=== PATIENT | male | born 1940 | race Caucasian/White ===

== ENCOUNTER → 2017-04-08 | Outpatient (CLI) | payer MEDICARE, BC ==
--- NOTE | ~2017-04-08 | ESTC ---
Cardiac Perfusion Imaging Demographics Patient Name TORITO Aragon Gender Male Patient Number [id number] Race Visit Number [id number] Ethnicity [employer] ID Room Number Accession Number [id number] Height 66 inches Date of 1940 Weight 140 pounds Interpreting Physician Otto Date of study 04/08/2017 Carlos Supervising /HELLEN AREVALO Technologist Sara Gonzalez Ordering Physician Otto Stress Carlos registered dietetic technician Stress ECG Reading Otto Nurse Tito Augustin RN Physician Carlos The procedure was explained in detail to the patient. Risks, complications and alternative treatments were reviewed. Written consent was obtained. Medications Reviewed with Patient prior to Procedure. Procedure Procedure Type: Nuclear Stress Test:Exercise, Cardiolite Stress Test Procedure Start time: 04/08/2017 09:35 Indications: Pre surgical clearance. 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 Conclusions Summary Perfusion Images: The overall quality of the study is fair, due to gastrointestinal tracer uptake. Left ventricular cavity is noted to be normal on the stress and rest studies. There is no evidence of abnormal lung activity. The right ventricle is not visualized and cannot be assessed. Stress SPECT images demonstrate medium size moderate severity perfusion defect in the inferior wall which appears worse on rest images. Gated SPECT imaging reveals mild inferior wall hypokinesis. Left ventricular ejection fraction was calculated to be 68%. Impression ECG portion of the stress test is clinically negative for ischemia by diagnostic criteria. Myocardial perfusion imaging is abnormal. Images reveal a medium sized area of predominantly fixed perfusion defect suggestive of inferior wall infarct. Gated SPECT imaging reveals mild inferior wall hypokinesis. Left ventricular ejection fraction was calculated to be 68%. This is a low risk stress test. Stress Protocols Resting ECG Normal sinus rhythm. Pre-stress physical exam: Patient assessed by Dr Horner prior to testing. Predicted HR: 144 bpm ECG Findings Non specific ST-T wave changes Arrhythmias No rhythm abnormality. Symptoms Shortness of breath. Stress Interpretation Appropriate hemodynamic response to exercise. No significant ST-T wave changes with exercise. EKG portion is negative for ischemia by diagnostic criteria. The Santos Treadmill score was 9 .This corresponds to a low risk stress test. Imaging Results Applied corrections - Motion correction applied High risk findings Summed scores - Summed stress score: 3 - Summed rest score: 3 - Summed difference score: 0 Stress ejection Ejection fraction:69 % EDV :80 ml ESV :25 ml Stroke volume :55 ml LV mass :120 gr Imaging Protocols Rest Stress Isotope:Tc99m Sestamibi IV Isotope: Tc99m Sestamibi IV Isotope dose:11.35 mCi Isotope dose:35 mCi Date:04/08/2017 07:53 Date:04/08/2017 10:03 Technique: SPECT Technique: Gated Supine SPECT Supine Scan Time:45-60 minutes post Scan Time:45-60 minutes post injection injection Medical History Admission Data Admission date: 04/08/2017 Admission Time: 07:34 Hospital Status: Outpatient. Signatures dtt: CARLOS HORNER dtd: 04/08/17 0935 Physician Self Edit
== END | disposition disaster alternative care site (69) ==
LOC: GRAD 07:34
DX: Z01.810 Encounter for preprocedural cardiovascular examination (principal); I25.10 Atherosclerotic heart disease of native coronary artery without angina pectoris; E78.5 Hyperlipidemia, unspecified; Z87.891 Personal history of nicotine dependence; Z82.49 Family history of ischemic heart disease and other diseases of the circulatory system; Z95.1 Presence of aortocoronary bypass graft; Z98.61 Coronary angioplasty status
CPT/HCPCS: A9500

== ENCOUNTER → 2017-05-30 | Outpatient (CLI) | payer MEDICARE, BC ==
[2017-05-30 08:42] LABS: ALBUMIN 3.7 gm/dL (3.5-5.0); TOTAL BILIRUBIN 0.6 mg/dL (0.0-1.5); TOTAL PROTEIN 7.2 g/dL (6.0-8.4)
== END ==
LOC: LNHI 08:24
PROVIDERS: Internal Medicine Interventional Cardiology
DX: Z01.810 Encounter for preprocedural cardiovascular examination (principal); I25.10 Atherosclerotic heart disease of native coronary artery without angina pectoris